=== PATIENT | female | born 1970 | race Caucasian/White ===

== ENCOUNTER 2024-11-10 04:33 | Emergency (ER) | payer OTHER, SELFPAY ==
[2024-11-10 04:36] VITALS: BP 210/112
--- NOTE | 2024-11-10 05:28 | ED.GENMED ---
History of Present Illness
General
Chief Complaint: Skin Problem
Source: patient
Exam Limitations: none
Time Seen by Provider: 11/10/24 05:19
Nursing documentation reviewed up to this point in time: agreed with
History of Present Illness
History of Present Illness:
Is a pleasant 53-year-old female who experienced chills and fatigue starting Sunday night after work and went straight to bed feeling unwell. Symptoms persisted into Sunday without much improvement. Patient came in tonight because she noticed
that throughout the day yesterday her left leg started getting red. She is concerned for infection.
Past History
Past History
ED Past Medical History: HTN and Other (Prior history of otitis media and sinus problems)
ED Past Surgical History: None
Social History
Tobacco: Non-smoker
Alcohol: Occasional
Living: with family
Family History
Family History: Diabetes and Cancer
Phy Exam
General Physical Exam
General Presentation: well appearing and mild distress
General Skin: warm and dry
General Habitus: normal
General Mental: alert
General Hydration: appears well hydrated
ENT Exam
ENT Exam: EOMI, pharynx normal, neck supple and normocephalic
Eye Exam
Eye Exam: PERRL, cornea clear and conjunctiva normal
Cardiovascular Exam
Cardiovascular Exam: regular rate/rhythm, no edema, no murmur and normal peripheral pulses
Pulmonary Exam
Pulmonary Exam: lungs clear, no respiratory distress, no rales, no crackles, no rhonchi, no stridor, no wheezing and no cough
Gastrointestinal Exam
Gastrointestinal Exam: normal bowel sounds, non tender, soft, no organomegaly, no pulsatile mass and non distended
Neurological Exam
Neurological Exam: alert, oriented x3, no motor deficits and speech normal
Musculoskeletal Exam
Musculoskeletal Exam: full ROM and no edema
Skin Exam
Skin Exam: warm/dry, no rash, no petechia, redness (Left leg) and warmth
Psychiatric Exam
Psychiatric Exam: normal mood/affect
Course
Orders/Labs/Results
Orders:
Orders
11/10/24 05:27
US Legs, Left [US Periph Venous LOWER Ext LT] Urgent
Comment:
Reason For Exam: redness, swelling
11/10/24 05:39
Complete Blood Count/With Diff Urgent
Comprehensive Metabolic Panel Urgent
Sed Rate [Erythrocyte Sed Rate] Urgent
11/10/24 06:42
Cephalexin Monohydrate [Keflex] 500 mg PO NOW STA
Abnormal Lab Results
11/10/24
05:39
MCV 80.0 L fL
(81.0-99.0)
MCH 26.8 L pg
(27.0-31.0)
Abs Immat Gran (auto) 0.1 H 10^3/uL
(0-0.05)
Absolute Neuts (auto) 7.5 H 10^3/uL
(1.4-6.5)
Absolute Lymphs (auto) 1.0 L 10^3/uL
(1.2-3.4)
Absolute Monos (auto) 1.0 H 10^3/uL
(0.1-0.6)
Immature Gran % 1.5 H %
(0-0.5)
Neutrophils % 77.5 H %
(42.2-75.2)
Lymphocytes % 10.5 L %
(20.5-51.1)
Monocytes % 10.0 H %
(1.7-9.3)
ESR 46 H mm/hour
(0-20)
Glucose 183 H mg/dl
(70-99)
11/10/24 05:39
11/10/24 05:39
Vital Signs
Initial and Last Documented VS:
Initial Vital Signs
Temp Pulse Resp BP Pulse Ox
98.7 F 98 22 210/112 98
11/10/24 04:36 11/10/24 04:36 11/10/24 04:36 11/10/24 04:36 11/10/24 04:36
Last Documented Vital Signs
Temp Pulse Resp BP Pulse Ox
98.7 F 88 23 152/91 95
11/10/24 04:36 11/10/24 05:29 11/10/24 05:29 11/10/24 05:29 11/10/24 05:29
*Pulse Oximetry
Patient hypoxic: no
*Critical Care Note
Total Time (30-74mins, 75-104mins- exclusive of procedures): Not Applicable (98% on room air)
ED Attending Note
-
Portions of this chart may have been created with voice recognition software.� Occasional wrong word or��sound alike� substitutions may have occurred due to the inherent limitations of voice recognition software.
Discharge Plan
Departure
Patient Disposition: Home (Routine Discharge)
Date of Disposition: 11/10/24
Time of Disposition: 06:43
Patient with high blood pressure during this ER visit?: Yes
Discharge Problem:
Cellulitis
Instructions: Cellulitis (Skin Infection), Adult (DC), BLOOD PRESSURE
Prescriptions:
New
cephalexin 500 mg capsule
500 mg PO Q6H 10 Days Qty: 40 0RF
No Action
amlodipine 10 mg tablet
10 mg PO DAILY Qty: 30 0RF
clobetasol 0.05 % Cream
1 applic TOPICAL PRN PRN (Reason: psoriasis flare)
hydrochlorothiazide 25 mg Tablet
25 mg PO DAILY
valsartan 160 mg Tablet
160 mg PO DAILY
Skyrizi 150 mg/mL Pen Injector
150 mg SC Q12W
fluticasone propionate [Flonase] 50 mcg/actuation [place],Suspension
2 spray INTRANASAL DAILY
Patient Comments:
one spray each nostril
Activity Restrictions/Additional Instructions:
Thank You for choosing [facility].
It was a pleasure meeting you and taking part in your care. We hope for your continued healing and wellness.
Please read discharge instructions in their entirety. However, they are for general education and may not describe your exact diagnosis at discharge. Information on your ER visit and medical conditions were discussed with you along with appropriate
follow up information...
If indicated, please take your medications as instructed and indicated on discharge paperwork.
Please schedule a follow up appointment as directed. Call to schedule an appointment
Please return to the emergency department with ANY change in, persisting, or worsening of symptoms. If any of your symptoms do not improve, or persist, or become more severe within 6-12 hours, please return to the emergency department for further
care.
Please return to the emergency department if you develop a headache, neck pain/stiffness, fever greater than 100.4F, chest pain, shortness of breath, persistent nausea, vomiting, slurred speech, difficulty walking, numbness/tingling, weakness, signs
of infection or any other symptoms that are worrisome to you.
If you have any questions or concerns please do not hesitate to call the Hospital at or E-mail me directly at [email or web address]
Interventions
Interventions:
*Risk Screen - Suicide Last Done: 11/10/24 04:36
*General Assessment Last Done: 11/10/24 05:40
*Neglect/Abuse Screening Last Done: 11/10/24 04:36
*ED- Fall Risk Assessment Last Done: 11/10/24 05:40
ED-Skin Assessment Last Done: 11/10/24 05:47
Discharge Date and Time
Print Language: SWISS
[2024-11-10 05:29] VITALS: BP 152/91
[2024-11-10 05:40] VITALS: BMI 44.5
[2024-11-10 05:46] LABS: % Basophils 0.5 % (0-2); % Immature Granulocytes 1.5 % (0-0.5); % Lymphocytes 10.5 % (20.5-51.1); % Neutrophils 77.5 % (42.2-75.2); Absolute Basophils 0.1 10^3/uL (0-0.2); Absolute Immature Granulocytes 0.1 10^3/uL (0-0.05); Absolute Neutrophils 7.5 10^3/uL (1.4-6.5); Hematocrit 37.3 % (37.0-47.0); Hemoglobin 12.5 g/dL (12.0-16.0); Mean Corp Hgb Conc. 33.5 g/dL (33.0-37.0); Mean Corpuscular Hgb 26.8 pg (27.0-31.0); Mean Platelet Volume 8.7 fL (7.4-10.4); Nucleated Red Blood Cells % 0 %; Platelet Count 230 10^3/uL (130-400); Red Blood Cell Count 4.66 10^6/uL (4.20-5.40); Red Cell Dist. Width 14.3 % (11.5-14.5); White Blood Cell Count 9.6 10^3/uL (4.8-10.8)
--- NOTE | 2024-11-10 05:48 | EDRN ---
Pt came home on Sunday and says she had aches, fever and chills. Pt did not take her temperature. Pt stayed in bed all weekend. No appetite. Pt took tylenol around the clock for symptoms. Pt woke this morning around 0200 with redness in her L
lower leg concerning for cellulitis which prompted this ED visit. Pt occasionally has chills. No fever currently. No cough, cp, sob, n/v
[2024-11-10 06:05] LABS: ALT (SGPT) 29 U/L (0-35); AST (SGOT) 34 U/L (14-36); Alkaline Phosphatase 84 U/L (38-126); Blood Urea Nitrogen 8 mg/dl (7-17); Calcium 8.6 mg/dl (8.4-10.2); Carbon Dioxide 26 mmol/L (22-30); Chloride 101 mmol/L (98-107); Estimated Creatinine Clearance 116 ml/min; Glucose 183 mg/dl (70-99); Potassium 4.1 mmol/L (3.5-5.1); Sodium 135 mmol/L (135-145); Total Bilirubin 0.9 mg/dl (0.2-1.3); Total Protein 7.4 g/dl (6.3-8.2); eGFR > 60.00
[2024-11-10 06:17] LABS: Erythrocyte Sed Rate 46 mm/hour (0-20)
[2024-11-10 06:57] VITALS: BP 156/74
[2024-11-10] MEDS: KEFLEX 500 MG PO (06:57)
== END 2024-11-10 07:07 | disposition home or self-care (01) ==
LOC: EMR 04:33
PROVIDERS: EMERGENCY PHYSICIAN Student in an Organized Health Care Education/Training Program
DX: L03.116 Cellulitis of left lower limb (principal)
CPT/HCPCS: 99285; 80053; 85025; 85652; 93971